=== PATIENT | female | born 1950 | race Hispanic/Latino ===

== ENCOUNTER 2018-08-17 11:04 | Outpatient (CLI) | payer OTHER ==
--- NOTE | 2018-08-17 11:52 | BD ---
DEXA BONE MINERAL DENSITOMETRY EXAM, DENSITY STUDY: HISTORY: Postmenopausal. FINDINGS: Lumbar Spine: BMD (g/cm2) L1 0.680 T-Score: -2.8 L2 0.686 T-Score: -3.1 L3 0.775 T-Score: -2.8 L4 0.928 T-Score: -1.2 L1-L4 0.773 T-Score: -2.5 Femoral Neck: 0.671 T-Score: -1.6 Total Femur: 0.921 T-Score: -0.2 Impression: Osteopenia of the left femoral neck and osteoporosis of the lumbar spine. POS: [facility]
== END 2018-08-17 11:05 | disposition home or self-care (01) ==
LOC: BICMAMMO 11:04
PROVIDERS: ATTEND Nurse Practitioner Family
DX: Z13.820 Encounter for screening for osteoporosis (principal); M81.0 Age-related osteoporosis without current pathological fracture; M85.852 Other specified disorders of bone density and structure, left thigh
CPT/HCPCS: 77080

== ENCOUNTER 2020-09-07 10:33 | Outpatient (CLI) | payer OTHER | END 2020-09-07 10:34 | disposition home or self-care (01) | LOC: BICMAMMO 10:33 | PROVIDERS: ATTEND Family Medicine | DX: Z12.31 Encounter for screening mammogram for malignant neoplasm of breast (principal) | CPT/HCPCS: 77063; 77067 ==